=== PATIENT | male | born 1930 | race Two or more races ===

== ENCOUNTER 2018-02-25 19:20 | Inpatient (IN) | payer MEDICARE, MEDICAID ==
[~2018-02-25] VITALS: Ht 175.3 cm; Wt 68.9 kg
[~2018-02-25 19:20] MED LIST: AMLO5TAB2 PO; CHOL20006 PO; FINA5TAB11 PO; LORA0.5T PO; LOSA25TA13 PO; ONDA4TAB5 PO; TAMS-12 PO
--- NOTE | 2018-02-25 19:30 | NUR ---
BIBRA C/O NONRADITATING MID STERNAL CHEST PRESSURE X 1 DAY COST ACCOUNTING CLERK. PER RA GAVE PT 1 NITRO SPRAY AND 162 OF ASPIRIN. PT DENIES N/V/D. SKIN WNL. PT STATES HE FEELS SHORT OF BREATH. PT'S SPO2 94% ON RA, PER MD PT PLACED ON NC 2L/M, SPO2 96% WITH RR 16 PER MINUTE. NO S/S OF ACUTE DISTRESS NOTED. RESP EVEN AND UNLABORED. PT PLACED ON PL SQL PROGRAMMER AND POX. PT NOTED TO BE SINUS JHON, PER DAUGHTER PT'S HR IS NORMALLY JHON, HOWEVER THEY ARE UNSURE OF THE NORMAL RESTING CARDIAC RATE. PT IS AAOX4. PT'S DAUGHTER BEDSIDE. PT SAFETY AND COMFORT MEASURES IN PLACE. AWAITING MD FOR EVAL.
[2018-02-25] MEDS ORDERED: ASPIRIN 81 MG TAB.CHEW ONE (19:54)
[2018-02-25] MEDS ORDERED: KETOROLAC TROMETHAMINE 15 MG/ML VIAL ONE (19:54)
[2018-02-25 19:58] LABS: BASOPHILS % (AUTO) 0.6 % (0.0-2.0); EOSINOPHILS % (AUTO) 3.1 % (0.0-6.0); HEMATOCRIT 46 % (39-51); HEMOGLOBIN 15.2 g/dL (13.5-17.5); LYMPHOCYTES # (AUTO) 1.3 /CMM (0.8-4.8); LYMPHOCYTES % (AUTO) 36.6 % (20.0-44.0); MEAN CORPUSCULAR HEMOGLOBIN 29 PG (26.0-33.0); MEAN CORPUSCULAR HGB CONC 33 g/dl (31.0-36.0); MEAN CORPUSCULAR VOLUME 88 fL (80-96); MONOCYTES # (AUTO) 0.4 /CMM (0.1-1.30); MONOCYTES % (AUTO) 10.5 % (2.0-12.0); NEUTROPHILS # (AUTO) 1.8 /CMM (1.8-8.9); NEUTROPHILS % (AUTO) 49.2 % (43.0-81.0); PLATELET COUNT (AUTO) 159 /CMM (150-450); RDW COEFFICIENT OF VARIATION 13.1 (11.5-15.0); RED BLOOD CELL COUNT(AUTO) 5.29 MIL/uL (4.5-6.0); WHITE BLOOD COUNT (AUTO) 3.6 K/uL (4.3-11.0)
[2018-02-25] MEDS ORDERED: KETOROLAC TROMETHAMINE INJ 30 MG/ML VIAL IV ONE (20:00)
[2018-02-25] MEDS ORDERED: ASPIRIN 81 MG TAB.CHEW PO ONE (20:00)
[2018-02-25 20:16] LABS: TROPONIN I < 0.017 ng/mL (0.00-0.056)
--- NOTE | 2018-02-25 20:20 | NUR ---
RN ADMITTING TEL NOTE RECEIVED PT FROM ER, REPORT GIVEN BY ILIA RODRIGUEZ, 87YR OLD MALE FARSI SPEAKING W/DAUGHTER TO INTERPRET. AOX3 ON NC@2L/PM WELL SAGRARIO SAT98%, DENIES ANY PAIN, ADMITTING DIAGNOSIS SOB/CPAIN, THOUGH PT IS SINUS JHON 38-40 ON TEL MONITOR. SEEN BY RICCO Christina, ADMITTING ORDERS ENTERED, RECOMMENDING CARDIOLOGY CONSULT D/T BRADYCARDIA, NO SKIN ISSUES, WITH LAC#20G PATENT AND WELL SECURED SL. ALL NEEDS MET WELL SAFETY. PT NPO AFTER MIDNIGHT. SIGN POSTED, WILL ENDORSE TO AM RN FOR JOSIE.
[2018-02-25 20:28] LABS: CARBON DIOXIDE 31 mmol/L (21-32); CHLORIDE 100 mmol/L (98-107); POTASSIUM 3.4 mmol/L (3.5-5.1); SODIUM SERUM 135 mmol/L (136-145)
[2018-02-25 20:29] LABS: CALCIUM, SERUM 8.6 mg/dL (8.5-10.1); CREATININE 1.3 mg/dL (0.6-1.3); GLUCOSE 99 mg/dL (74-106); UREA NITROGEN, BLOOD 19 mg/dL (7-18)
[2018-02-25 20:30] LABS: ALANINE AMINOTRANSFERASE 21 U/L (12-78); ALBUMIN 3.3 g/dL (3.4-5.0); ALKALINE PHOSPHATASE 70 U/L (46-116); ASPARTATE AMINOTRANSFERASE 12 U/L (15-37); BILIRUBIN,DIRECT 0.1 mg/dL (0.0-0.2); BILIRUBIN,TOTAL 0.5 mg/dL (0.2-1.0)
[2018-02-25 20:31] LABS: LIPASE 120 U/L (73-393); TOTAL PROTEIN, SERUM 6.7 g/dL (6.4-8.2)
--- NOTE | 2018-02-25 20:32 | NUR ---
PAGED EPIC FOR PANEL - DEVELOPER ADVISOR IS RICCO MCGREGOR
--- NOTE | 2018-02-25 20:46 | NUR ---
CALLED NURSE SUP FOR TELE BED
--- NOTE | 2018-02-25 21:20 | NUR ---
REPORT GIVEN TO MICHAEL FAUSTIN FOR JOSIE
[2018-02-25 22:20] VITALS: BP 140/72
[2018-02-25] MEDS ORDERED: MAGNESIUM HYDROXIDE 30 ML UDC PO PRN (23:00)
[2018-02-25] MEDS ORDERED: ATROPINE SULFATE INJ 1 MG/ML VIAL IV PRN (23:00)
[2018-02-25] MEDS ORDERED: MAG HYDROX/AL HYDROX/SIMETH 30 ML UDC PO PRN (23:00)
[2018-02-25] MEDS ORDERED: ZOLPIDEM TARTRATE 5 MG TABLET PO PRN (23:00)
[2018-02-25] MEDS ORDERED: NITROGLYCERIN 0.4 MG/TAB BOTTLE SL PRN (23:00)
[2018-02-25] MEDS ORDERED: Z GUARD REMEDY 2 OZ OINT TP PRN (23:00)
[2018-02-25] MEDS ORDERED: ACETAMINOPHEN 325 MG TABLET PO PRN (23:00)
[2018-02-25] MEDS ORDERED: ONDANSETRON HCL/PF 4 MG/2 ML VIAL IVP PRN (23:00)
[2018-02-25] MEDS ORDERED: HYDROCODONE/APAP 5/325MG 1 EACH TABLET PO PRN (23:00)
[2018-02-25] MEDS ORDERED: LORAZEPAM 0.5 MG TABLET PO PRN (23:00)
[2018-02-25] MEDS: NITROGLYCERIN PACKET 1 GM PACKET TOP SCH (23:52)
[2018-02-26] VITALS: BP 146/71
[2018-02-26] MEDS ORDERED: ENOXAPARIN SODIUM 40 MG/0.4 ML DISP.SYRIN SQ ONE (01:00)
[2018-02-26 04:00] VITALS: BP 125/64
--- NOTE | 2018-02-26 06:31 | NUR ---
RN TEL CLOSING NOTE PT ENDORSED TO AM RN STILL SINUS JHON 40'S, FOR F/U CARDIOLOGY CONSULT/DR CHACKO, PT ASYMPTOMATIC, DENIES ANY PAIN OR CPAIN DISCOMFORT, NITRO BID PATCH ON LCHEST, NO A/R, DENIES ANY SOB, ALL NEEDS ATTENDED, WILL CONT TO MONITOR.
--- NOTE | 2018-02-26 07:15 | NUR ---
RN NOTES PT IS LAYING DOWN IN BED, RESTING COMFORTABLY. PT ON 2L O2, RESPIRATIONS ARE EVEN AND UNLABORED. IV ON LAC INTACT AND SL. TELE MONITOR SHOWS SINUS BRADYCARDIA. NO SIGNS OF DISTRESS NOTED. SAFETY MEASURES ARE IN PLACE, CALL LIGHT IS IN REACH. WILL CONTINUE TO MONITOR.
[2018-02-26 08:00] VITALS: BP 149/69
[2018-02-26 08:46] LABS: CARBON DIOXIDE 30 mmol/L (21-32); CHLORIDE 101 mmol/L (98-107); CREATININE 1.4 mg/dL (0.6-1.3); GLUCOSE 87 mg/dL (74-106); MAGNESIUM 1.7 mg/dL (1.8-2.4); PHOSPHORUS 3.9 mg/dL (2.5-4.9); POTASSIUM 3.4 mmol/L (3.5-5.1); SODIUM SERUM 136 mmol/L (136-145); UREA NITROGEN, BLOOD 18 mg/dL (7-18)
[2018-02-26 08:57] LABS: CHOLESTEROL 166 mg/dL (<200); HDL CHOLESTEROL 46 mg/dL (40-60); LDL 106 mg/dL (0-99); THYROID STIMULATING HORMONE 1.267 uIU/mL (0.358-3.74); TRIGLYCERIDES 84 mg/dL (30-150)
[2018-02-26] MEDS ORDERED: FINASTERIDE (5 MG) 5 MG TABLET PO SCH (09:00)
[2018-02-26] MEDS ORDERED: PANTOPRAZOLE 40 MG VIAL IV SCH (09:00)
[2018-02-26] MEDS ORDERED: ASPIRIN EC 325 MG TABLET.DR PO SCH (09:00)
[2018-02-26] MEDS ORDERED: LOSARTAN POTASSIUM 25 MG TABLET PO SCH (09:00)
[2018-02-26] MEDS ORDERED: CHOLECALCIFEROL 1,000 UNIT TABLET (VIT D3) PO SCH (09:00)
[2018-02-26] MEDS: Magnesium 1GM/D5W 100ML PREMIX 100 ML IV SCH ×2 (09:57→12:15)
[2018-02-26] MEDS ORDERED: PANTOPRAZOLE 40 MG TABLET.DR PO SCH (10:30)
[2018-02-26] MEDS ORDERED: IOHEXOL-350 100 ML VIAL IV ONE (11:17)
[2018-02-26] MEDS ORDERED: IV NS 0.9% 250 ML IV ONE (11:17)
[2018-02-26] MEDS ORDERED: NITROGLYCERIN 0.4 MG/TAB BOTTLE ONE (11:29)
[2018-02-26 11:30] LABS: BASOPHILS % (AUTO) 0.5 % (0.0-2.0); EOSINOPHILS % (AUTO) 3.5 % (0.0-6.0); HEMATOCRIT 43 % (39-51); HEMOGLOBIN 14.4 g/dL (13.5-17.5); LYMPHOCYTES # (AUTO) 1.3 /CMM (0.8-4.8); LYMPHOCYTES % (AUTO) 32.2 % (20.0-44.0); MEAN CORPUSCULAR HEMOGLOBIN 30 PG (26.0-33.0); MEAN CORPUSCULAR HGB CONC 33 g/dl (31.0-36.0); MEAN CORPUSCULAR VOLUME 89 fL (80-96); MONOCYTES # (AUTO) 0.4 /CMM (0.1-1.30); MONOCYTES % (AUTO) 9.2 % (2.0-12.0); NEUTROPHILS # (AUTO) 2.2 /CMM (1.8-8.9); NEUTROPHILS % (AUTO) 54.6 % (43.0-81.0); PLATELET COUNT (AUTO) 150 /CMM (150-450); RDW COEFFICIENT OF VARIATION 13.9 (11.5-15.0); RED BLOOD CELL COUNT(AUTO) 4.88 MIL/uL (4.5-6.0)
[2018-02-26] MEDS: NITROGLYCERIN PACKET 1 GM PACKET TOP SCH ×2 (11:30→12:54)
[2018-02-26 12:00] VITALS: BP 148/75
[2018-02-26] MEDS: POTASSIUM CL. PREMIX PERIPHER. 50 ML IV SCH ×2 (13:22→14:46)
[2018-02-26 16:00] VITALS: BP 127/66
--- NOTE | 2018-02-26 17:00 | NUR ---
RN NOTES PT WAS DISCHARGED HOME IN STABLE CONDITION, ACCOMPANIED BY HIS DAUGHTER AND SON. ALL MEDICATIONS WERE GIVEN ORDERED PRIOR TO DISCHARGE. IV'S AND ID BAND WERE REMOVED. PT WAS GIVEN DISCHARGE INSTRUCTIONS AND WAS TOLD TO FOLLOW UP WITH PCP AND ELECTRICIAN JOURNEYMAN WIREMAN WITHIN 1-2 WEEKS OF DISCHARGE. PT VERBALIZED UNDERSTANDING AND PLANNED TO MAKE HIS APPOINTMENT WHEN HE GOT HOME. ALL BELONGINGS WERE RETURNED TO PATIENT.
[2018-02-26] MEDS ORDERED: ENOXAPARIN SODIUM 40 MG/0.4 ML DISP.SYRIN SQ SCH (21:00)
[2018-02-26] MEDS ORDERED: TAMSULOSIN 0.4 MG CAP.SR.24H PO SCH (22:00)
== END 2018-02-26 16:57 | disposition home or self-care (01) | DRG 206 ==
LOC: ER 19:23 → TELE1 21:07
PROVIDERS: ADMIT Hospitalist; ATTEND Hospitalist
DX: M94.0 Chondrocostal junction syndrome [Tietze] (principal); E44.1 Mild protein-calorie malnutrition; E87.1 Hypo-osmolality and hyponatremia; E78.5 Hyperlipidemia, unspecified; I10 Essential (primary) hypertension; E87.6 Hypokalemia; N40.0 Benign prostatic hyperplasia without lower urinary tract symptoms; Z79.899 Other long term (current) drug therapy; K21.9 Gastro-esophageal reflux disease without esophagitis; R00.1 Bradycardia, unspecified; F41.9 Anxiety disorder, unspecified; Z91.14 Patient's other noncompliance with medication regimen
CPT/HCPCS: 36415; 71045-TC; 75574; 80048-TC; 80061-TC; 80076-TC; 83690-TC; 83735-TC; 83880; 84100-TC; 84443-TC; 84484-TC; 85025-TC; 87081-TC; 93307-TC; A4606; C9113; J1650; J1885; J3475; J3480; J7050; Q9967; Z7610

== ENCOUNTER 2020-02-22 18:39 | Inpatient (IN) | payer MEDICARE, OTHER ==
[~2020-02-22] VITALS: Ht 180.3 cm; Wt 74.8 kg
[~2020-02-22 18:39] MED LIST changes: -AMLO5TAB2 PO; +AMLO5TAB9 PO; -LOSA25TA13 PO; +LOSA25TA27 PO
--- NOTE | 2020-02-22 18:57 | NUR ---
PT BIBRA FROM HOME TO ER BED 03. PER REPORT PT'S BEEN C/O GENERALIZED WEAKNESS, UNABLE TO AMBULATE X 4 DAYS. UPON ARRIVAL PT WAS PLACED ON MONITOR NOTED TO BE BRADYCARDIC RATE IN THE 30'S. DAUGHTER AT BEDSIDE. AWAITING MD AMOR.
--- NOTE | 2020-02-22 18:58 | NUR ---
DR SANCHEZ AT BEDSIDE FOR EVAL.
[2020-02-22] MEDS ORDERED: IV NS 0.9% 500 ML BAG IV ONE (19:00)
[2020-02-22] MEDS ORDERED: PREG75CA76 PO (19:23)
[2020-02-22] MEDS ORDERED: PREG75CA PO (19:23)
[2020-02-22] MEDS ORDERED: OLME1TAB86 PO (19:23)
[2020-02-22] MEDS ORDERED: TERA1CAP11 PO (19:23)
--- NOTE | 2020-02-22 19:24 | NUR ---
REPORT GIVEN TO LENORE RODRIGUEZ FOR JOSIE.
--- NOTE | 2020-02-22 19:25 | NUR ---
radiology at bedside for cxr
[2020-02-22 19:29] LABS: BASOPHILS # (AUTO) 0.1 /CMM (0.0-0.2); BASOPHILS % (AUTO) 1.4 % (0.0-2.0); EOSINOPHILS % (AUTO) 3.5 % (0.0-6.0); HEMATOCRIT 45 % (39-51); HEMOGLOBIN 14.7 g/dL (13.5-17.5); LYMPHOCYTES # (AUTO) 1.2 /CMM (0.8-4.8); LYMPHOCYTES % (AUTO) 31.8 % (20.0-44.0); MEAN CORPUSCULAR HGB CONC 33 g/dl (31.0-36.0); MEAN CORPUSCULAR VOLUME 89 fL (80-96); MONOCYTES # (AUTO) 0.3 /CMM (0.1-1.30); NEUTROPHILS # (AUTO) 2.1 /CMM (1.8-8.9); NEUTROPHILS % (AUTO) 55.3 % (43.0-81.0); PLATELET COUNT (AUTO) 116 /CMM (150-450); RED BLOOD CELL COUNT(AUTO) 5.02 MIL/uL (4.5-6.0); WHITE BLOOD COUNT (AUTO) 3.8 K/uL (4.3-11.0)
--- NOTE | 2020-02-22 19:38 | NUR ---
COVID SWAB SENT TO LAB
[2020-02-22 19:41] LABS: CALCIUM, SERUM 8.9 mg/dL (8.5-10.1); CARBON DIOXIDE 32 mmol/L (21-32); CHLORIDE 106 mmol/L (98-107); CREATININE 1.3 mg/dL (0.6-1.3); GLUCOSE 91 mg/dL (74-106); POTASSIUM 3.9 mmol/L (3.5-5.1); SODIUM SERUM 142 mmol/L (136-145); UREA NITROGEN, BLOOD 19 mg/dL (7-18)
[2020-02-22 19:54] LABS: B-TYPE NATRIURETIC PEPTIDE 733 PG/ML (0-125)
--- NOTE | 2020-02-22 19:58 | NUR ---
SPOKE TO DAUGHTER, UPDATED ON PLAN OF CARE. VSS. ON MONITOR AND PULSE OX.
--- NOTE | 2020-02-22 20:58 | NUR ---
PER DAUGHTER, MAKE SURE TO FEED PATIENT TONIGHT.
--- NOTE | 2020-02-22 21:16 | NUR ---
DR. BETINA PARR PER ER ORDER.
--- NOTE | 2020-02-22 21:18 | NUR ---
THIERRY BECERRA TALKING TO BETINA VALDOVINOS REGARDING PT.
--- NOTE | 2020-02-22 21:24 | NUR ---
TELE [id number]
--- NOTE | 2020-02-22 21:28 | NUR ---
CALLED FOR REPORT. TOLD TO CALL BACK IN 5 MINS
--- NOTE | 2020-02-22 21:42 | NUR ---
REPROT GIVEN TO AMILCAR RODRIGUEZ FOR OJSIE
[2020-02-22 22:08] VITALS: BP 148/71
--- NOTE | 2020-02-22 22:15 | NUR ---
PT TRANSFERED PER ACLS PROTOCOL
--- NOTE | 2020-02-22 22:16 | NUR ---
BIN PILER NOTES Received patient from ER [facility] 2 [facility] staff[facility] 308-1. Admitted for Bradycardia, weakness under the service of SQL ANALYST Gwendolyn Renee. Transferred to bed comfortably. Admission routine done. Initial skin assessment done, no skin issues identified at this time. Pt is A/O x4, awake, Farsi speaking, daughter on the phone for translation and additional medical information of the patient. 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 On RA, no s/sx of discomfort/distress noted at this time. Pt denies any chest pain at this time. Admission orders noted, due meds given as ordered. Kept pt on bed clean, dry and comfortable. Call light within easy reach. Will continue to monitor accordingly.
[2020-02-22 22:30] VITALS: BP 141/67
[2020-02-22] MEDS ORDERED: MAGNESIUM HYDROXIDE 30 ML UDC PO PRN (22:30)
[2020-02-22] MEDS ORDERED: IV 1/2NS 1000 ML 1,000 ML IV ONE (22:30)
[2020-02-22] MEDS ORDERED: Z GUARD REMEDY 2 OZ OINT TP PRN (22:30)
[2020-02-22] MEDS ORDERED: MAG HYDROX/AL HYDROX/SIMETH 30 ML UDC PO PRN (22:30)
[2020-02-22] MEDS ORDERED: ACETAMINOPHEN 325 MG TABLET PO PRN (22:30)
[2020-02-22] MEDS: ENOXAPARIN SODIUM 40 MG/0.4 ML DISP.SYRIN SQ SCH (22:54)
[2020-02-22] MEDS: ZOLPIDEM TARTRATE 5 MG TABLET PO PRN (23:56)
[2020-02-22] MEDS: ONDANSETRON HCL/PF 4 MG/2 ML VIAL IVP PRN (23:57)
[2020-02-23] VITALS (9 sets, daily range): BP systolic 96–158; BP diastolic 40–80
[2020-02-23 06:55] LABS: BASOPHILS % (AUTO) 0.7 % (0.0-2.0); EOSINOPHILS % (AUTO) 3.9 % (0.0-6.0); HEMATOCRIT 44 % (39-51); HEMOGLOBIN 14.6 g/dL (13.5-17.5); LYMPHOCYTES # (AUTO) 1.5 /CMM (0.8-4.8); LYMPHOCYTES % (AUTO) 37.2 % (20.0-44.0); MEAN CORPUSCULAR HGB CONC 33 g/dl (31.0-36.0); MEAN CORPUSCULAR VOLUME 88 fL (80-96); MONOCYTES # (AUTO) 0.3 /CMM (0.1-1.30); MONOCYTES % (AUTO) 8.1 % (2.0-12.0); NEUTROPHILS % (AUTO) 50.1 % (43.0-81.0); PLATELET COUNT (AUTO) 117 /CMM (150-450); RED BLOOD CELL COUNT(AUTO) 5.03 MIL/uL (4.5-6.0)
--- NOTE | 2020-02-23 07:02 | NUR ---
RN CLOSING NOTES Pt asleep, on tele monitor with Sinus bradycardia - 35bpm noted. On RA, saturating well, no complaints made at this time. Medicated for nausea, noted effective. All nursing needs attended, due meds given as ordered. Kept on bed clean, dry and comfortable. Call light within easy reach. Endorsed.
[2020-02-23 07:12] LABS: ALBUMIN 2.9 g/dL (3.4-5.0); BILIRUBIN,DIRECT 0.2 mg/dL (0.0-0.2); BILIRUBIN,TOTAL 0.8 mg/dL (0.2-1.0); CALCIUM, SERUM 8.1 mg/dL (8.5-10.1); CREATININE 1.3 mg/dL (0.6-1.3); MAGNESIUM 1.8 mg/dL (1.8-2.4); PHOSPHORUS 2.8 mg/dL (2.5-4.9); TOTAL PROTEIN, SERUM 6.6 g/dL (6.4-8.2)
--- NOTE | 2020-02-23 07:30 | NUR ---
MS/RN Opening note Patient received from rn shift mgr. Sleeping soundly at this time, appears in in discomfort or distress. Tele monitor reading SB, heart rate 39. Safety measures in place, bed in low setting, call light within reach. Will continue to monitor and ensure safety.
--- NOTE | 2020-02-23 08:00 | NUR ---
MS/cotton agent reading Tele reading SB, heart rate 37. Blood pressure stable.
--- NOTE | 2020-02-23 08:55 | NUR ---
MS/RN Medications Morning medications administered as ordered.
[2020-02-23] MEDS ORDERED: PREGABALIN 25 MG CAPSULE PO SCH (09:00)
--- NOTE | 2020-02-23 09:30 | NUR ---
MS/RN S/B Dr Dutton Seen by MD - made aware that heart rate has ranged from 31 to 40 beats per minute. Patient seen and examined, daughter spoken to via phone to provide back round information. Patient stood up at edge of bed, BP 91/46, heart rate 45, after ambulating BP 84/51, heart rate 56. Per MD, patient is for pacemeaker placement, either this afternoon or tomorrow.
[2020-02-23] MEDS: TERAZOSIN HCL 1 MG CAPSULE PO SCH ×2 (10:00→15:43)
--- NOTE | 2020-02-23 10:00 | NUR ---
MS/RN S/B Dr Rosales Seen by MD - consent to be obtained for permanent pacemaker placement, either later today or tomorrow morning.
--- NOTE | 2020-02-23 10:45 | NUR ---
MS/RN Consents Consent forms signed and placed in front of chart for surgery later today.
--- NOTE | 2020-02-23 12:01 | NUR ---
MS/health information coder Family updated as to plan of care and procedure scheduled for this afternoon. Per nursing supervisor filter assembly, daughter may come to floor 15 minutes prior to surgery to speak with patient and accompany patient to operating room and speak with doctor.
--- NOTE | 2020-02-23 16:10 | NUR ---
MS/RN Rounds Patient resting comfortably at this time, awaiting cook pickled meat for surgery.
[2020-02-23] MEDS ORDERED: ANESTHESIA TRAY IN PYXIS 1 EA TRAY MC ONE (16:43)
[2020-02-23] MEDS ORDERED: FENTANYL PF 100MCG/2ML AMPUL ONE (16:43)
--- NOTE | 2020-02-23 17:02 | NUR ---
MS/RN OR Patient taken to operating room, chart with patient. Daughter at bedside and has spoken to surgeon.
[2020-02-23] MEDS ORDERED: LIDOCAINE HCL/PF 1% 30 ML SDV ONE (17:07)
--- NOTE | 2020-02-23 18:12 | NUR ---
MS/RN End note Patient in surgery at this time for permanent pacemaker placement.
[2020-02-23] MEDS ORDERED: SIMV10TA98 PO (18:15)
--- NOTE | 2020-02-23 19:48 | NUR ---
RN NOTES RECEIVED PATIENT FROM OR, S/P PACEMAKER PLACEMENT, LEFT CHEST WALL, WITH TELFA, ON TELE MONITOR, VPACING HR 120-130, COMPLAINING OF NECK DISCOMFORT, WILL CONTINUE TO MONITOR.
--- NOTE | 2020-02-23 20:32 | NUR ---
RN NOTES PATIENT HR UNSTABLE, GOES UP TO 130S, AFIB UNCONTROLLED PER TELE MONITOR, NOTIFIED DR. REED, DO NOT DISCHARGE TONIGHT, GIVE AMIODARONE BOLUS AND AMIODARONE DRIP.
--- NOTE | 2020-02-23 20:34 | NUR ---
RN NOTES NOTIFIED DAUGHTER DESI, PATIENT NOT DISCHARGE TONIGHT. DAUGHTER REQUESTED PHONE NUMBER OF DR. REED, GIVEN EXCHANGE PHONE NUMBER
[2020-02-23] MEDS ORDERED: AMIODARONE 150 MG in IV D5W 100 ML IV ONE (21:30)
[2020-02-23] MEDS ORDERED: AMIODARONE 150 MG/3 ML VIAL IV ONE (21:47)
[2020-02-23] MEDS: AMIODARONE 450 MG in IV D5W 250 ML IV PRN (22:13)
[2020-02-23] MEDS: MORPHINE SULFATE INJ 2 MG/ML DISP.SYRIN IV PRN (22:55)
[2020-02-23] MEDS: ZOLPIDEM TARTRATE 5 MG TABLET PO PRN (22:55)
[2020-02-23] MEDS: ENOXAPARIN SODIUM 40 MG/0.4 ML DISP.SYRIN SQ SCH (22:57)
--- NOTE | 2020-02-23 23:00 | NUR ---
RN NOTES RECEIVED PT ON BED FROM 3W ACCOMPANIED BY RN, PT IS A/OX 3 ROSANNE SPEAKING ON 2L 02 VIA NC SPO2 98% NO SIGN AND SYMPTOMS OF ANY DISTRESS HOOKED TO BEDSIDE MONITOR WITH READING AFIB UNCONTROLLED VPACING, V/S CHECKED WITHIN NORMAL RANGE, SAFETY MEASURE MAINTAINED WILL START AMIODARONE DRIP RATE PER ORDER, WILL CONT TO MONITOR
[2020-02-24] VITALS (21 sets, daily range): BP systolic 102–171; BP diastolic 45–94
[2020-02-24] MEDS ORDERED: AMIODARONE 150 MG/3 ML VIAL IV ONE (04:50)
[2020-02-24 04:51] LABS: BASOPHILS % (AUTO) 0.2 % (0.0-2.0); EOSINOPHILS % (AUTO) 0.4 % (0.0-6.0); HEMATOCRIT 47 % (39-51); HEMOGLOBIN 15.5 g/dL (13.5-17.5); LYMPHOCYTES # (AUTO) 0.7 /CMM (0.8-4.8); LYMPHOCYTES % (AUTO) 10.8 % (20.0-44.0); MEAN CORPUSCULAR HGB CONC 33 g/dl (31.0-36.0); MEAN CORPUSCULAR VOLUME 89 fL (80-96); MONOCYTES # (AUTO) 0.4 /CMM (0.1-1.30); MONOCYTES % (AUTO) 6.3 % (2.0-12.0); NEUTROPHILS # (AUTO) 5.6 /CMM (1.8-8.9); NEUTROPHILS % (AUTO) 82.3 % (43.0-81.0); PLATELET COUNT (AUTO) 102 /CMM (150-450); RED BLOOD CELL COUNT(AUTO) 5.35 MIL/uL (4.5-6.0); WHITE BLOOD COUNT (AUTO) 6.8 K/uL (4.3-11.0)
[2020-02-24 05:14] LABS: CREATINE KINASE, TOTAL 302 U/L (39-308)
[2020-02-24] MEDS: ONDANSETRON HCL/PF 4 MG/2 ML VIAL IVP PRN ×3 (05:21→22:00)
[2020-02-24 05:58] LABS: ALANINE AMINOTRANSFERASE 11 U/L (12-78); ALBUMIN 2.9 g/dL (3.4-5.0); ALKALINE PHOSPHATASE 63 U/L (46-116); ASPARTATE AMINOTRANSFERASE 23 U/L (15-37); BILIRUBIN,TOTAL 0.8 mg/dL (0.2-1.0); CARBON DIOXIDE 27 mmol/L (21-32); CHLORIDE 103 mmol/L (98-107); CREATININE 1.4 mg/dL (0.6-1.3); GLUCOSE 110 mg/dL (74-106); MAGNESIUM 1.6 mg/dL (1.8-2.4); PHOSPHORUS 2.5 mg/dL (2.5-4.9); POTASSIUM 3.7 mmol/L (3.5-5.1); SODIUM SERUM 137 mmol/L (136-145); TOTAL PROTEIN, SERUM 7.5 g/dL (6.4-8.2); UREA NITROGEN, BLOOD 17 mg/dL (7-18)
[2020-02-24] MEDS: AMIODARONE 450 MG in IV D5W 250 ML IV PRN ×2 (06:30→16:48)
--- NOTE | 2020-02-24 07:18 | NUR ---
RN CLOSING NOTES PT ON BED ASLEEP EASY TO WAKE UP ON 2L O2 VIA NC TOLERATING WELL WITH SPO2 96% BEDSIDE MONITOR READS AFIB CONTROLLED WITH VPACING, ON AMIODARONE DRIP 0.5MG/MIN PER PROTOCOL. NO SIGNIFICANT CHANGES ON CONDITION NOTED, ALL NEEDS ATTENDED, PT VOMIT 2X PRN MEDICATION GIVEN, SAFETY MEASURE MAINTAINED WILL ENDORSED TO AM SHIFT NURSE
[2020-02-24] MEDS: HYDROCODONE/APAP 5/325MG TABLET PO PRN ×2 (08:05→16:50)
[2020-02-24] MEDS: TERAZOSIN HCL 1 MG CAPSULE PO SCH ×2 (09:00→16:50)
[2020-02-24] MEDS: APIXABAN 5 MG TABLET PO SCH ×2 (10:16→16:49)
[2020-02-24] MEDS: CARVEDILOL 6.25 MG TABLET PO SCH ×2 (10:16→20:49)
[2020-02-24] MEDS: Magnesium 1GM/D5W 100ML PREMIX 100 ML IV SCH ×2 (10:17→11:42)
[2020-02-24] MEDS: ACETAMINOPHEN ES 500 MG TABLET PO SCH ×2 (10:17→20:48)
--- NOTE | 2020-02-24 12:00 | NUR ---
RN INITIAL NOTES RECEIVED PT AWAKE, A/O. ON 02 VIA NC. HOB ELEVATED. NO RESPIRATORY DISTRESS NOTED. NO SOB NOTED. DESIGNS ANY PAIN. ON AMIODARONE DRIP AT 0.5MG/MIN. PT V.PACING ON MONITOR, 70S. PT COMFORTABLE. BLE ELEVATED. CALL LIGHT WITHIN REACH. WILL MONITOR
[2020-02-24] MEDS: DIGOXIN INJ 0.5 MG/2 ML AMPUL IV SCH ×3 (12:02→23:17)
--- NOTE | 2020-02-24 17:23 | NUR ---
RN NOTES PT A/O. NO RESPIRATORY DISTRESS NOTED. NO SOB NOTED. DENIES ANY PAIN. REMAINS ON AMIO DRIP. REPORT GIVEN TO SEEMA RODRIGUEZ. TOOK OVER PT'S CARE
[2020-02-25] VITALS: BP 122/66
[2020-02-25] MEDS: MORPHINE SULFATE INJ 2 MG/ML DISP.SYRIN IV PRN (03:24)
[2020-02-25 04:00] VITALS: BP 155/76
--- NOTE | 2020-02-25 04:30 | NUR ---
RN notes Patient in bed, in sitting position. No respiratory distress noted, breathing even and unlabored. On 2 lpm O2 via nasal cannula tolerating well. Patient is alert and oriented, verbal. Noted with moaning and crying, complaining of feeling very warm, cold water given and morphine sulfate x 2, with relief. kept clean and dry. Daughter aware. Needs attended. Kept clean and dry. Will endorse to next shift for continuity of care.
[2020-02-25 04:39] VITALS: BP 155/76
[2020-02-25] MEDS: ACETAMINOPHEN ES 500 MG TABLET PO SCH ×2 (06:16→13:37)
[2020-02-25 07:46] LABS: BASOPHILS % (AUTO) 0.3 % (0.0-2.0); EOSINOPHILS % (AUTO) 0.3 % (0.0-6.0); HEMATOCRIT 47 % (39-51); HEMOGLOBIN 15.3 g/dL (13.5-17.5); LYMPHOCYTES % (AUTO) 10.9 % (20.0-44.0); MEAN CORPUSCULAR HGB CONC 32 g/dl (31.0-36.0); MEAN CORPUSCULAR VOLUME 90 fL (80-96); MONOCYTES # (AUTO) 0.7 /CMM (0.1-1.30); MONOCYTES % (AUTO) 7.7 % (2.0-12.0); NEUTROPHILS # (AUTO) 7.2 /CMM (1.8-8.9); NEUTROPHILS % (AUTO) 80.8 % (43.0-81.0); PLATELET COUNT (AUTO) 104 /CMM (150-450); RED BLOOD CELL COUNT(AUTO) 5.24 MIL/uL (4.5-6.0)
[2020-02-25] MEDS: CARVEDILOL 6.25 MG TABLET PO SCH (08:16)
[2020-02-25] MEDS: TERAZOSIN HCL 1 MG CAPSULE PO SCH (08:17)
[2020-02-25] MEDS: APIXABAN 5 MG TABLET PO SCH (08:18)
[2020-02-25 08:20] LABS: ALANINE AMINOTRANSFERASE 9 U/L (12-78); ALBUMIN 2.8 g/dL (3.4-5.0); ALKALINE PHOSPHATASE 64 U/L (46-116); ASPARTATE AMINOTRANSFERASE 33 U/L (15-37); BILIRUBIN,TOTAL 0.9 mg/dL (0.2-1.0); CARBON DIOXIDE 22 mmol/L (21-32); CHLORIDE 100 mmol/L (98-107); CREATININE 1.5 mg/dL (0.6-1.3); GLUCOSE 107 mg/dL (74-106); MAGNESIUM 2.2 mg/dL (1.8-2.4); PHOSPHORUS 2.3 mg/dL (2.5-4.9); POTASSIUM 3.8 mmol/L (3.5-5.1); SODIUM SERUM 133 mmol/L (136-145); TOTAL PROTEIN, SERUM 6.5 g/dL (6.4-8.2); UREA NITROGEN, BLOOD 21 mg/dL (7-18)
[2020-02-25] MEDS: ONDANSETRON HCL/PF 4 MG/2 ML VIAL IVP PRN (08:54)
--- NOTE | 2020-02-25 08:55 | NUR ---
TELE/RN NOTE THE PATIENT COMPLAINS OF FEELING NAUSEOUS. ZOFRAN 4 MG IV PUSH GIVEN. WILL CONTINUE TO MONITOR.
--- NOTE | 2020-02-25 09:24 | NUR ---
TELE/RN NOTE PATIENT VERBALIZED RELIEF FROM NAUSEA.
[2020-02-25 10:14] VITALS: BP 178/92
[2020-02-25 10:18] VITALS: BP 187/79
--- NOTE | 2020-02-25 10:18 | NUR ---
TELE/RN NOTE BIB RODRIGUEZ IS MADE AWARE OF PATIENT BLOOD PRESSURE OF 187/79 AND PULSE 60 DESPITE GIVING SCHEDULED COREG 6.25 MG AND HYTRIN 1 MG. RECEIVED AN ORDER OF HYDRALAZINE 10 MG IV PUSH X1. NOTED AND CARRIED OUT.
[2020-02-25] MEDS ORDERED: hydrALAZINE HCL IV 20 MG VIAL IV ONE (10:30)
[2020-02-25 11:36] VITALS: BP 122/56
--- NOTE | 2020-02-25 11:37 | NUR ---
RN NOTE BLOOD PRESSURE 122/56 AND PULSE 60. THE PATIENT IS IN NO APPARENT DISTRESS.
[2020-02-25] MEDS ORDERED: hydrALAZINE HCL IV 20 MG VIAL IV PRN (12:00)
--- NOTE | 2020-02-25 14:45 | NUR ---
RN NOTE THE PATIENT ALERT AND ORIENTED DENIES PAIN. IN ROOM AIR AND OXYGEN SATURATION IS AT 96%. RESPIRATION REGULAR AND UNLABORED. PATIENT IN NO APPARENT DISTRESS. DISCHARGE EDUCATION/INSTRUCTIONS PROVIDED TO THE PATIENT AND DAUGHTER SANDRA. BOTH VERBALIZED UNDERSTANDING. THE PATIENT LEFT THE HOSPITAL IN A PRIVATE CAR WITH HIS DAUGHTER.
[2020-02-27 08:14] LABS: *SPE A/G RATIO 1.1 (0.7-1.7); *SPE ALPHA-1-GLOBULIN 0.2 g/dL (0.0-0.4); *SPE ALPHA-2-GLOBULIN 0.5 g/dL (0.4-1.0); *SPE GLOBULIN, TOTAL 2.7 g/dL (2.2-3.9); *SPE M-SPIKE Not Observed g/dL (Not Observed); *SPEGAMMA GLOBULIN 1.1 g/dL (0.4-1.8)
== END 2020-02-25 14:40 | disposition home or self-care (01) | DRG 242 ==
LOC: ER 18:39 → TELE 21:40 → ICU 02-23 21:22 → TELE 02-24 18:13 → MED 02-25 10:26
PROVIDERS: ADMIT Nurse Practitioner Acute Care; ATTEND Registered Nurse
PROC: 0JH606Z Insertion of Pacemaker, Dual Chamber into Chest Subcutaneous Tissue and Fascia, Open Approach (ICD-10-PCS; principal; 2020-02-23)
PROC: 02HK3JZ Insertion of Pacemaker Lead into Right Ventricle, Percutaneous Approach (ICD-10-PCS; 2020-02-23)
DX: I49.5 Sick sinus syndrome (principal); N17.0 Acute kidney failure with tubular necrosis; E87.1 Hypo-osmolality and hyponatremia; K21.9 Gastro-esophageal reflux disease without esophagitis; E86.0 Dehydration; I48.91 Unspecified atrial fibrillation; E78.5 Hyperlipidemia, unspecified; Z79.899 Other long term (current) drug therapy; N40.0 Benign prostatic hyperplasia without lower urinary tract symptoms; Z86.73 Personal history of transient ischemic attack (TIA), and cerebral infarction without residual deficits; G62.9 Polyneuropathy, unspecified; Z74.09 Other reduced mobility; I12.9 Hypertensive chronic kidney disease with stage 1 through stage 4 chronic kidney disease, or unspecified chronic kidney disease; N18.9 Chronic kidney disease, unspecified
CPT/HCPCS: 36415; 71045-TC; 80048-TC; 80053-TC; 80061-TC; 80076-TC; 82550-TC; 83540-TC; 83735-TC; 83880; 83970; 84100-TC; 84155; 84165; 84443-TC; 84484-TC; 85025-TC; 85730-TC; 87081-TC; 93307-TC; 97116-TC; 97530-TC; 97535-TC; C1786; C9803-CS; G0378; J0282; J0360; J0690; J1160; J1644; J1650; J2270; J2405; J2704; J3010; J3475; J3490; J7060

== ENCOUNTER 2020-03-05 13:19 | Emergency (ER) | payer MEDICARE, OTHER ==
[~2020-03-05] VITALS: Ht 180.3 cm; Wt 68.5 kg
[~2020-03-05 13:19] MED LIST changes: +OLME1TAB86 PO; +PREG75CA PO; +PREG75CA76 PO; +SIMV10TA98 PO; +TERA1CAP11 PO
--- NOTE | 2020-03-05 13:29 | NUR ---
CALLED EPIC CARDIO, PAGED DR REED
[2020-03-05] MEDS ORDERED: IV NS 0.9% 1,000 ML BAG IV ONE (13:30)
[2020-03-05 13:43] LABS: BASOPHILS % (AUTO) 0.7 % (0.0-2.0); EOSINOPHILS % (AUTO) 6.7 % (0.0-6.0); HEMATOCRIT 43 % (39-51); HEMOGLOBIN 14.4 g/dL (13.5-17.5); LYMPHOCYTES # (AUTO) 1.2 /CMM (0.8-4.8); LYMPHOCYTES % (AUTO) 28.4 % (20.0-44.0); MEAN CORPUSCULAR HGB CONC 33 g/dl (31.0-36.0); MEAN CORPUSCULAR VOLUME 88 fL (80-96); MONOCYTES # (AUTO) 0.6 /CMM (0.1-1.30); NEUTROPHILS % (AUTO) 50.2 % (43.0-81.0); PLATELET COUNT (AUTO) 134 /CMM (150-450); RED BLOOD CELL COUNT(AUTO) 4.88 MIL/uL (4.5-6.0); WHITE BLOOD COUNT (AUTO) 4.1 K/uL (4.3-11.0)
--- NOTE | 2020-03-05 13:45 | NUR ---
BIB RA 39 FROM HOME DUE TO LOW BLOOD PRESSURE (85/48) PER DAUGHTER,C/O WEAKNESS SINCE HE WAS D/C'D 02/25/20 WHERE A PACEMAKER WAS PUT IN. PT AAOX3, VSS. RR EVEN & UNLABORED. DENIES CP, DIZZINESS, N/V AT THIS TIME. PT SPEAKING FLUENTLY, DAUGHTER @ BS TO ASSIST WITH TRANSLATION. NO FACIAL DROOP, TONGUE MIDLINE, NO ARM/LEG DRIFTING, GOOD EQUAL DATA COMPILER. PLACED ON YARDER ENGINEER. PT SEEN & EVAL'D BY DR. HURLEY. WILL CONT TO MONITOR.
[2020-03-05] MEDS ORDERED: SIMV10TA98 PO (13:49)
[2020-03-05] MEDS ORDERED: APIX2.5T PO (13:49)
[2020-03-05 13:55] LABS: CALCIUM, SERUM 8.2 mg/dL (8.5-10.1); CARBON DIOXIDE 29 mmol/L (21-32); CHLORIDE 105 mmol/L (98-107); CREATININE 2.3 mg/dL (0.6-1.3); GLUCOSE 107 mg/dL (74-106); POTASSIUM 3.6 mmol/L (3.5-5.1); SODIUM SERUM 139 mmol/L (136-145); UREA NITROGEN, BLOOD 41 mg/dL (7-18)
[2020-03-05 14:07] LABS: B-TYPE NATRIURETIC PEPTIDE 96 PG/ML (0-125)
--- NOTE | 2020-03-05 15:24 | NUR ---
Patient discharged to home in stable condition. Written and verbal after care instructions given TO DAUGHTER. Patient & DAUGHTER verbalizes understanding of instruction. IV removed. Catheter intact and site benign. Pressure and 4x4 applied to site. No bleeding noted.
[2020-03-05 15:42] VITALS: BP 137/85
== END 2020-03-05 15:43 | disposition home or self-care (01) ==
LOC: ER 13:21
DX: E86.0 Dehydration (principal); I95.1 Orthostatic hypotension; N17.9 Acute kidney failure, unspecified; Z95.0 Presence of cardiac pacemaker; Z79.899 Other long term (current) drug therapy
CPT/HCPCS: 36415; 71045; 80048; 83880; 84484; 85025; 85730; 93005 ×2; 96360; 99285; J7030; 87081-TC